=== PATIENT | female | born 1975 | race Caucasian/White ===

== ENCOUNTER → 2017-01-29 | Outpatient (CLI) | payer BC | END | disposition home or self-care (01) | LOC: GMA 14:17 | PROVIDERS: ATTEND Nurse Practitioner Family | DX: N92.4 Excessive bleeding in the premenopausal period (principal) ==

== ENCOUNTER → 2018-12-27 | Outpatient (CLI) | payer OTHER ==
--- NOTE | 2018-12-27 14:21 | CT ---
EXAM: Sinuses CLINICAL HISTORY: ACUTE SINUSITIS COMPARISON STUDY: May 12, 2015 CT sinuses TECHNICAL: Thin section non-contrast axial CT images were obtained through the paranasal sinuses. Sagittal and coronal reconstructions were acquired. FINDINGS: The paranasal sinuses are normally formed and aerated. There are no opacified sinuses. There is no air fluid level identified within any of the paranasal sinuses. There is very mild mucosal thickening within the maxillary sinuses. The conus or retention cysts are seen in the maxillary sinuses and measure 2 cm on the left and 1 cm on the right.. The ostiomeatal units are patent. The nasal septum is deviated to the right. There is no fracture or acute osseous abnormality. The temporomandibular joints are in alignment. IMPRESSION: 1. Minimal mucosal thickening in both maxillary sinuses and bilateral maxillary sinus mucosal retention cysts. 2. Right nasal septal deviation. Automated exposure control, Adjustment of mA and/or kV according to patient size, or iterative reconstruction techniques were used. Electronically signed by: Suman Villeda MD 12/27/2018 2:17 PM [facility]
== END ==
LOC: CT 09:32
PROVIDERS: ATTEND Family Medicine
DX: J01.80 Other acute sinusitis (principal); J34.2 Deviated nasal septum; J34.1 Cyst and mucocele of nose and nasal sinus

== ENCOUNTER → 2019-06-23 | Outpatient (CLI) | payer OTHER ==
--- NOTE | 2019-06-26 14:14 | MAM ---
EXAM DESCRIPTION: 3D Screening BILATERAL : Digital Mammography. CLINICAL HISTORY: 44 years Female ANNUAL SCREENING . No complaints. No personal or family history of breast cancer. Childbirth. Premenopausal. No HRT. Prior right breast biopsy. Lifetime risk of developing breast cancer (Tyrer-Cuzick model)(%): 12.1. COMPARISON: Baseline study at this facility.. No prior reports available. TECHNIQUE: Bilateral CC and MLO projection full-field images, digital tomosynthesis mammographic technique. Bilateral digital 2-D full-field MLO images. CAD not available for tomosynthesis or 2-D images. FINDINGS: The breast parenchymal density pattern is: Extremely dense breast tissue, which lowers the sensitivity of mammography. No skin thickening or nipple retraction. Bilateral dense breast tissue involving the anterior two thirds of the breast and lateral posterior breast. Architectural distortion in the upper outer quadrant of the left breast posterior third and also slightly lateral. Diffuse heterogeneous calcifications in the upper outer quadrant mostly anterior, superior, and lateral to the architectural distortion. This involves a region of at least 4 cubic cm. Biopsy site marker in the middle third of the right breast lower inner quadrant. No new focal, stellate mass or density, focal asymmetry , and no suspicious microcalcifications right breast. IMPRESSION: BI-RADS CATEGORY: 0 - INCOMPLETE- Need additional imaging evaluation. FOLLOW-UP: Recall for additional imaging: Bilateral full-field LM breast tomosynthesis. Spot magnification region of interest left breast in the CC and LM projections. Targeted bilateral breast ultrasound, depending on diagnostic images.. Written communication concerning the IMPRESSION and Follow-up, will be mailed to the patient and referring health care provider. Electronically signed by: Gelacio Robbins MD 06/26/2019 2:12 PM CDT
== END ==
LOC: MAMMO 14:57
PROVIDERS: ATTEND Family Medicine
DX: Z12.31 Encounter for screening mammogram for malignant neoplasm of breast (principal)

== ENCOUNTER → 2019-07-23 | Outpatient (CLI) | payer OTHER ==
--- NOTE | 2019-07-23 15:57 | US ---
EXAM DESCRIPTION: Diagnostic Mammo,Bilateral (accession [id number]), Breast,Left (accession [id number]): Ultrasound CLINICAL HISTORY: 44 yearsFemaleABN MAMMO bilateral dense breasts and numerous heterogeneous microcalcifications in the lateral left breast. COMPARISON: Bilateral screening digital breast tomosynthesis 07/23/2019. TECHNIQUE: Bilateral LM projection full-field images, digital mammographic tomosynthesis technique. Bilateral 2-D digital full-field images. LM and CC projections. Spot magnification upper outer quadrant left breast CC and ML projections. CAD not available. . Transcutaneous scanning of the upper outer quadrant left breast utilizing munguia-scale and Doppler modes. Scanning performed by the phlebotomy lab assistant and Dr. Robbins. FINDINGS: The breast parenchymal density pattern is: Extremely dense breast tissue, which lowers the sensitivity of mammography. No skin thickening or nipple retraction prior biopsy site marker posterior lower inner quadrant right breast. A large group of heterogeneous amorphous calcifications is visualized at the 2:00 position of the middle and posterior third of the left breast approximately 8 cm from the nipple. Multiple other heterogeneous calcifications are noted bilaterally.. Ultrasound: Scanning of the lateral left breast and upper outer quadrant. Predominantly fibroglandular and fibrocystic tissues. Minimal fatty replacement. Complicated cyst versus lymph node or small fibroadenoma 3:00 position 7 cm from the nipple measuring 4.8 mm. Wider than tall orientation mixed posterior acoustic enhancement not vascular. Second structure in in the nearby soft tissues measures 5.8 x 5.3 mm with same imaging characteristics. 4.9 mm anechoic structure with circumscribed margins, posterior acoustic enhancement, and wider than tall orientation and not vascular also in the nearby soft tissues. More likely to represent a cyst. IMPRESSION: Abnormal microcalcifications left breast. ASSESSMENT: 1. BI-RADS Category 4: SUSPICIOUS. Sub-category 4A - Low Suspicion For Malignancy. 2. Surgical consultation and tissue diagnosis is recommended if there are no clinical contraindications. The FINDINGS and FOLLOW-UP plan were reviewed in person with the patient following the examination. Written communication explaining the IMPRESSION and FOLLOW-UP will be mailed to the patient and referring care provider. CRITICAL COMMUNICATION: The critical value was discussed directly by phone by Dr. Robbins, with Dr. Tunde Virk at approximately 1455 hours, on 07/23/2019. Electronically signed by: Gelacio Robbins MD 07/23/2019 3:56 PM CDT
== END ==
LOC: MAMMO 09:55
PROVIDERS: ATTEND Family Medicine
DX: R92.8 Other abnormal and inconclusive findings on diagnostic imaging of breast (principal); R92.0 Mammographic microcalcification found on diagnostic imaging of breast